=== PATIENT | female | born 1970 | race Caucasian/White ===

== ENCOUNTER 2024-06-19 19:01 | Emergency (ER) | payer SELFPAY ==
[2024-06-19] VITALS (52 sets, daily range): BP systolic 124–182; BP diastolic 71–107; PULSE 63–129; RESP 12–31; TEMP 36.8; O2SAT 93–100; BMI 38.1
[2024-06-19 19:37] LABS: Bilirubin Urine Negative (Negative); Blood Urine 1+ (Negative); Glucose Urine UA Negative (Normal); Ketones Urine Negative (Negative); Leukocyte Esterase Urine Trace (Negative); Nitrate Urine Negative (Negative); Protein Urine Negative (Negative); Urine Appearance Clear (CLEAR); Urine Color Yellow (Yellow); Urobilinogen Urine 0.2 mg/dL (Negative)
--- NOTE | 2024-06-19 19:39 | CTR_ITS ---
PROCEDURE INFORMATION: Exam: CT Head Without Contrast Exam date and time: 06/19/2024 7:53 PM Age: 54 years old Clinical indication: Patient HX: C/O dizziness with hypertension; Additional info: HTN, dizziness TECHNIQUE: Imaging protocol: Computed tomography of the head without contrast. Radiation optimization: All CT scans at this facility use at least one of these dose optimization techniques: automated exposure control; mA and/or kV adjustment per patient size (includes targeted exams where dose is matched to clinical indication); or iterative reconstruction. COMPARISON: No relevant prior studies available. RADIATION DOSE METRICS: Total DLP (mGy-cm): 1018.58 FINDINGS: Brain: No hemorrhage. Periventricular and subcortical white matter hypodensities likely represent chronic small vessel ischemic changes. No mass effect. Cerebral ventricles: No ventriculomegaly. Paranasal sinuses: Visualized sinuses are unremarkable. No fluid levels. Mastoid air cells: Visualized mastoid air cells are well aerated. Bones: Unremarkable. No acute fracture. Soft tissues: Unremarkable. CT/CT head wo con* [id number] IMPRESSION: No acute intracranial abnormality.
[2024-06-19 19:42] LABS: Bacteria Urine None Seen /hpf; Hyaline Casts Urine 0-4 /lpf; Squamous Epithelial Cell Urine 0-5 /hpf (0-5)
[2024-06-19 19:47] LABS: Basophils # 0.1 10^3/uL (0.0-0.1); Basophils % 0.5 %; Eosinophils # 0.1 10^3/uL (0.0-0.8); Eosinophils % 0.5 %; Hematocrit 46.2 % (36-47); Lymphocytes # 3.7 10^3/uL (0.8-4.8); Lymphocytes % 24.5 %; Mean Corpuscular HGB Conc 34.4 g/dL (30-55); Mean Corpuscular Hemoglobin 29.9 pg (27-33); Mean Platelet Volume 10.1 fL (7.4-10.4); Monocytes # 0.8 10^3/uL (0.2-0.9); Monocytes % 5.4 %; Neutrophils # 10.36 10^3/uL (1.8-7.7); Neutrophils % 68.6 %; Nucleated Red Blood Cells % 0 %; Platelet Count 383 10^3/cmm (157-399); Red Blood Count 5.31 10^6/uL (3.85-5.65); Red Cell Distribution Width 12.8 % (12.1-15.1); White Blood Count 15.09 10^3/uL (3.29-11.43)
[2024-06-19] MEDS: metoprolol tartrate 1 mg/1 mL SDV 5 mL 5 MG IVP ×2 (19:48→21:53)
[2024-06-19] MEDS: amlodipine 10 mg Tablet PO (19:48)
[2024-06-19 19:58] LABS: INR 1.03 (0.8-1.2)
[2024-06-19 19:59] LABS: Partial Thromboplastin Time 30.5 SECONDS (23.9-36.7)
[2024-06-19 20:14] LABS: Alanine Aminotransferase 17 U/L (0-33); Albumin Level 4.1 g/dL (3.5-5.2); Alkaline Phosphatase 83 U/L (35-105); Anion Gap 14.6 (5-19); Aspartate Amino Transferase 17 U/L (0-32); Blood Urea Nitrogen 11 mg/dL (6-20); Calcium 8.7 mg/dL (8.5-10.5); Carbon Dioxide 28 mmol/L (22-29); Chloride 96 mmol/L (98-107); Creatinine Clr Calc Pharmacy 125.1966; Globulin 3.4 g/dL (1.3-4.6); Glomerular Filtration Rate 103.4 mL/min (90-130); Glucose 217 mg/dL (65-115); Magnesium 2.1 mg/dL (1.7-2.3); NT Pro B Type Natriuretic Pept 171 pg/mL (0-125); Osmolality Calculated 286 mOsm/kg (285-295); Potassium 3.6 mmol/L (3.5-5.1); Sodium 135 mmol/L (136-145); Total Protein 7.5 g/dL (6.6-8.7)
[2024-06-19] MEDS: meclizine 25 mg tablet PO (21:11)
--- NOTE | 2024-06-19 22:31 | W.ED.GENADLT ---
HPI - General Adult General: Chief complaint: General Medical Stated complaint: HYPERTENSION Time Seen by Provider: 06/19/24 19:13 History of Present Illness: 54-year-old female presenting with high blood pressure, and what she relates is dizziness. Dizziness is worse with sitting down she says. She has wavy vision. No blind spots no problems with language, numbness, weakness, etc. Dizziness seems intermittent. She says that she can walk fine. For quite some time, likely since 2009, which is the last time she saw a doctor. She was seen in the clinic earlier, and placed on hydrochlorothiazide/lisinopril Related Data Previous Rx's Medication Instructions Recorded clonidine HCl 0.1 mg tablet 0.1 mg PO TID PRN hypertensive 06/19/24 emergency #90 tabs lisinopril 20 1 tab PO DAILY 30 days #30 tabs 06/19/24 mg-hydrochlorothiazide 25 mg tablet Allergies Allergy/AdvReac Type Severity Reaction Status Date / Time No Known Allergies Allergy Unverified 06/19/24 09:31 [facility] ED PFSH: Social History Smoking and tobacco/nicotine status: never used tobacco/nicotine Physical Exam Const: COMMON NORMALS: no acute distress GENERAL APPEARANCE: cooperative; not ill appearing and not frail appearing HENMT: COMMON NORMALS: normocephalic, atraumatic and Normal external nose present HEAD & SCALP: normocephalic and atraumatic FACE & SINUS: normal facial exam and face symmetric NOSE: Normal external nose present Eye: COMMON NORMALS: Equal, round and reactive pupils present and EOMs intact bilaterally PUPIL: Yes Equal, round and reactive pupils present Neck/C-Spine: GENERAL: Yes trachea midline Chest: CHEST: Yes Symmetrical chest wall rise Resp: COMMON NORMALS: normal respiratory effort, No retractions, No use of accessory muscles and clear to auscultation bilaterally AUSCULTATION: clear to auscultation bilaterally Cardio: COMMON NORMALS: regular rate and regular rhythm RATE: regular rate RHYTHM: regular rhythm GI: COMMON NORMALS: Normal to inspection, nondistended, normoactive bowel sounds present Extremity: COMMON NORMALS: no pedal edema Neuro: BONNIE COMA SCALE: document GCS findings [place] coma scale eye opening: Spontaneous Bonnie coma scale verbal response: Orientated [place] coma scale motor response: Obey commands [place] coma scale total score: 15 SENSORY EXAM: Yes extremities (intact) Psych: COMMON NORMALS: speech normal SPEECH: Yes normal speech Skin: COMMON NORMALS: no rashes or lesions noted GENERAL SKIN EXAM: no rashes or lesions noted Course Vital Signs: Vital signs: Vital Signs Temperature 98.2 F 06/19/24 19:16 Pulse Rate 67 06/20/24 01:06 Respiratory Rate 18 06/20/24 01:06 Blood Pressure 140/89 06/20/24 01:06 Pulse Oximetry 95 06/20/24 01:06 Oxygen Delivery Me thod Room Air 06/19/24 19:16 MDM - General Adult Medical Decision Making Patient is quite hypertensive on arrival, 180s over 100s. Now down to 153/84, blood cell count is 15, without significant shift in cells. Hemoglobin is 16. Head CT is nonacute. Other laboratory is essentially unremarkable. Patient was given meclizine for the dizziness. She has walked in the hallway without assistance. Patient is no longer dizzy. She does still state that her vision is wavy . On reexamination, waviness is bilateral, with vision appearing the same with left eye closed versus right. Funduscopic exam is not abnormal. Differential diagnosis includes an ocular migraine. She will be given IV valproic acid for this. In the absence of other neurologic findings, will allow discharge. Close outpatient follow-up. She is to continue her antihypertensive medicine prescribed earlier today. Lab Data 06/19/24 19:30 06/19/24 19:[address] 06/19/24 19:39 IMPRESSION: No acute intracranial abnormality. Laboratory Results WBC 15.09 10^3/uL (3.29-11.43) H 06/19/24 19:30 RBC 5.31 10^6/uL (3.85-5.65) 06/19/24 19:30 Hgb 15.90 g/dL (11.27-16.99) 06/19/24 19:30 Hct 46.2 % (36-47) 06/19/24 19:30 MCV 87.0 fl (85-98) 06/19/24 19:30 MCH 29.9 pg (27-33) 06/19/24 19:30 MCHC 34.4 g/dL (30-55) 06/19/24 19:30 RDW 12.8 % (12.1-15.1) 06/19/24 19:30 Plt Count 383 10^3/cmm (157-399) 06/19/24 19:30 MPV 10.1 fL (7.4-10.4) 06/19/24 19:30 Neut % (Auto) 68.6 % 06/19/24 19:30 Lymph % (Auto) 24.5 % 06/19/24 19:30 [place] % (Auto) 5.4 % 06/19/24 19:30 Eos % (Auto) 0.5 % 06/19/24 19:30 Baso % (Auto) 0.5 % 06/19/24:30 Neut # (Auto) 10.36 10^3/uL (1.8-7.7) H 06/19/24 19:30 Lymph # (Auto) 3.7 10^3/uL (0.8-4.8) 06/19/24 19:30 [place] # (Auto) 0.8 10^3/uL (0.2-0.9) 06/19/24 19:30 Eos # (Auto) 0.1 10^3/uL (0.0-0.8) 06/19/24 19:30 Baso # (Auto) 0.1 10^3/uL (0.0-0.1) 06/19/24 19:30 Nucleated RBC % (auto) 0 % 06/19/24: Nucleated RBCs # 0.0 /100WBC 06/19/24:30 PT 13.90 SECONDS (12.1-14.9) 06/19/24 19:30 INR 1.03 (0.8-1.2) 06/19/24 19:30 APTT 30.5 SECONDS (23.9-36.7) 06/19/24 19:30 Sodium 135 mmol/L (136-145) L 06/19/24 19:30 Potassium 3.6 mmol/L (3.5-5.1) 06/19/24 19:30 Chloride 96 mmol/L (98-107) L 06/19/24:30 Carbon Dioxide 28 mmol/L (22-29) 06/19/24 19:30 Anion Gap 14.6 (5-19) 06/19/24 19:30 BUN 11 mg/dL (6-20) 06/19/24 19:30 Creatinine 0.6 mg/dL (0.5-0.9) 06/19/24 19:30 GFR Calculation 103.4 mL/min (90-130) 06/19/24 19:30 Glucose 217 mg/dL (65-115) H 06/19/24 19:30 Calculated Osmolality 286 mOsm/kg (285-295) 06/19/24 19:30 Calcium 8.7 mg/dL (8.5-10.5) 06/19/24 19:30 Magnesium 2.1 mg/dL (1.7-2.3) 06/19/24: Total Bilirubin 1.0 mg/dL (0.15-1.2) 06/19/24 19:30 AST 17 U/L (0-32) 06/19/24 19:30 ALT 17 U/L (0-33) 06/19/24 19:30 Alkaline Phosphatase 83 U/L (35-105) 06/19/24 19:30 NT-Pro-B Natriuret Pep 171 pg/mL (0-125) H 06/19/24 19:30 Total Protein 7.5 g/dL (6.6-8.7) 06/19/24 19:30 Albumin 4.1 g/dL (3.5-5.2) 06/19/24 19:30 Globulin 3.4 g/dL (1.3-4.6) 06/19/24 19:30 Urine Color Yellow (Yellow) 06/19/24: Urine Appearance Clear (CLEAR) 06/19/24 19:24 Urine pH 6.0 (5-7) 06/19/24 19:24 Ur Specific [place] 1.010 (1.005-1.030) 06/19/24 19:24 Urine Protein Negative (Negative) 06/19/24 19: Urine Glucose (UA) Negative (Normal) 06/19/24 19: Urine Ketones Negative (Negative) 06/19/24: Urine Blood 1+ (Negative) A 06/19/24 19: Urine Nitrate Negative (Negative) 06/19/24: Urine Bilirubin Negative (Negative) 06/19/24:24 Urine Urobilinogen 0.2 mg/dL (Negative) 06/19/24 19:24 Ur Leukocyte Esterase Trace (Negative) A 06/19/24 19:24 Urine RBC 3-5 /hpf (0-2) 06/19/24 19:24 Urine WBC 6-10 /hpf (0-5) 06/19/24 19:24 Ur Squamous Epith Cells 0-5 /hpf (0-5) 06/19/24 19:24 Amorphous Sediment Not Reportable 06/19/24 19:24 Urine Bacteria None seen /hpf (NONE) 06/19/24 19:24 Hyaline Casts 0-4 /lpf H 06/19/24 19:24 All radiology interpretation(s) finalized by discharge Discharge Plan Discharge Patient Disposition: Home Clinical Impression: Hypertensive urgency, Alteration in vision Condition: Stable Prescriptions: No Action clonidine HCl 0.1 mg tablet 0.1 mg PO TID PRN (Reason: hypertensive emergency) Qty: 90 0RF lisinopril-hydrochlorothiazide 20-25 mg tablet 1 tab PO DAILY 30 Days Qty: 30 3RF Discharge Orders: Discharge ED (Routine); Ordered 06/19/24 Ordered By: Tony Mcdaniel Referrals: Milana Geller MD [Primary Care Provider] - 1-3 days Nathen Brink [Physician] - 1-3 days Patient Instructions: Hypertension (ED), Opioid Safety, Pain Management, Vision Problems Activity Restrictions/Additional Instructions: Continue the blood pressure medication you were prescribed earlier today. Return for onset of new symptoms such as language problems, speech problems, weakness, numbness, worsening headache, other concerning symptoms. Return also if your vision continues to worsen. Call ophthalmology Saturday morning for a follow-up appointment. You should see your doctor next week as well. Coding Level of Care Code ED Switchboard Receptionist for [place] NIH stroke score NIHSS Level Of Consciousness - 1a: 0 Level Of Consciousness Questions - 1b: Both Correct Level Of Consciousness Commands - 1c: Both Correct Best Gaze - 2: Normal Visual Jung - 3: No Visual Loss Facial Palsy - 4: Normal Motor Arm Left - 5: No Drift Motor Leg Right - 6: No Drift Motor Leg Left - 6: No Drift Limb Ataxia - 7: Absent Sensory - 8: Normal Best Language - 9: No Aphasia Dysarthia - 10: Normal Extinction And Inattention - 11: 0
[2024-06-19] MEDS: valproic acid inj 500 MG in sodium chloride 0.9% 50 ML 55 MG IV (23:37)
[2024-06-20] VITALS (10 sets, daily range): BP systolic 134–142; BP diastolic 74–89; PULSE 65–68; RESP 14–29; O2SAT 92–99
== END 2024-06-20 01:08 | disposition home or self-care (01) ==
PROVIDERS: Emergency Provider Emergency Medicine; Family Provider Family Medicine; PCP Family Medicine
DX: I16.0 Hypertensive urgency (principal); H53.9 Unspecified visual disturbance
CPT/HCPCS: 70450; 80053; 81001; 83735; 83880; 85025; 85610; 85730; 96365; 96375; 96376; 99285; J3490; J8597

== ENCOUNTER 2024-06-26 02:30 | Inpatient (IN) | payer SELFPAY ==
[2024-06-26] VITALS (16 sets, daily range): BP systolic 123–174; BP diastolic 72–103; PULSE 67–86; RESP 16–21; TEMP 36.6–37; O2SAT 93–99; BMI 33.3
--- NOTE | 2024-06-26 02:37 | CTR_ITS ---
PROCEDURE INFORMATION: Exam: CT Head Without Contrast Exam date and time: 06/26/2024 3:00 AM Age: 54 years old Clinical indication: Stroke-like symptoms; Left upper extremity and left lower extremity numbness/paresthesia; Additional info: Symptoms of acute stroke TECHNIQUE: Imaging protocol: Computed tomography of the head without contrast. Radiation optimization: All CT scans at this facility use at least one of these dose optimization techniques: automated exposure control; mA and/or kV adjustment per patient size (includes targeted exams where dose is matched to clinical indication); or iterative reconstruction. Other technique: STROKE PROTOCOL was implemented. COMPARISON: CT head wo con* [id number] 06/19/2024 7:53 PM RADIATION DOSE METRICS: Total DLP (mGy-cm): 1108.43 FINDINGS: Brain: 4 mm right pontine hypodensity may represent an acute infarct. Periventricular and deep white matter hypodensities compatible with chronic microvascular ischemic changes. No acute intracranial hemorrhage. No mass effect or midline shift. Cerebral ventricles: No ventriculomegaly. Paranasal sinuses: Visualized sinuses are unremarkable. No fluid levels. Mastoid air cells: No mastoid effusion. Bones: Unremarkable. No acute fracture. Soft tissues: Unremarkable. CT/CT head thrombolytic [id number] IMPRESSION: 4 mm right pontine hypodensity may represent an acute infarct. Findings appear new since recent exam dated 06/19/2024. Follow-up evaluation with MRI. No acute intracranial hemorrhage. ASSESSMENT: ASPECTS ([place] Stroke Program Early CT Score) is 10.
--- NOTE | 2024-06-26 02:40 | ED_ITS ---
HPI - Weakness 2 General: Chief complaint: Weakness Stated complaint: Tingling in LT Leg Time Seen by Provider: 06/26/24 02:37 History of Present Illness: Patient brought in by [facility] with complaints of tingling and weakness off and on in the left arm and left leg for a week. She says it has been intermittent has at times it is better at times is gotten worse. Patient was seen here approximately week ago for high blood pressure diagnosed with a migraine she was put on clonidine at that time and her blood pressure seem to have improved. Upon arrival here is 123/98. Review of Systems 2 General: Reports: 10 or more systems reviewed and unremarkable except in HPI and below PFSH ED 2 PFSH: Social History Smoking and tobacco/nicotine status: never used tobacco/nicotine Physical Exam 2 Const: COMMON NORMALS: no acute distress, average body habitus, patient oriented x3, no limitations, healthy appearing, alert and well nourished HENMT: COMMON NORMALS: normocephalic, atraumatic, hearing grossly normal bilaterally, external ears normal and Normal external nose present; oral mucous membranes not moist (Very dry oral mucosa) HEAD & SCALP: n ormocephalic and atraumatic NOSE: Normal external nose present EXTERNAL EAR: Yes external ears normal Eye: COMMON NORMALS: Equal, round and reactive pupils present, EOMs intact bilaterally, conjunctivae normal and no scleral icterus CONJUNCTIVA: Yes conjunctivae normal PUPIL: Yes Equal, round and reactive pupils present Neck/C-Spine: COMMON NORMALS: full ROM, no lymphadenopathy, supple, no meningeal signs, no JVD and Thyroid normal THYROID: Thyroid normal Chest: COMMONS NORMALS: normal inspection of the chest and normal palpation of entire chest wall Resp: COMMON NORMALS: normal respiratory effort, No retractions, No use of accessory muscles and clear to auscultation bilaterally AUSCULTATION: clear to auscultation bilaterally Cardio: COMMON NORMALS: no JVD, regular rate, regular rhythm, S1 normal heart sound present, S2 normal heart sound present, No gallops present (Cardio), No clicks present (Cardio), No murmurs present (Cardio) and No rub (Cardio) R ATE: regular rate RHYTHM: regular rhythm HEART SOUNDS: S1 normal heart sound present and S2 normal heart sound present GI: COMMON NORMALS: Normal to inspection, nondistended, normoactive bowel sounds present, Soft to palpation, non-tender, No hepatosplenomegaly present and no masses PALPATION: Yes Soft to palpation and Yes No hepatosplenomegaly present Neuro: COMMON NORMALS: patient oriented x3 SENSORIUM/ORIENTATION: Yes alert MENINGEAL SIGNS: Yes no meningeal signs Course 2 Vital Signs: Vital signs: Vital Signs Temperature 98.6 F 06/26/24 02:33 Pulse Rate 80 06/26/24 04:45 Respiratory Rate 18 06/26/24 04:45 Blood Pressure 163/92 06/26/24 04:45 Pulse Oximetry 99 06/26/24 04:45 MDM - Weakness Medical Decision Making Patient was admitted with left-sided weakness times last 3 to 4 days. This has been going off and on. Stroke workup was initiated patient end up with a white count of 18,000, BUN/creatinine 22 and 0.7, head CT showed 4 mm right pontine hypodensity that may represent acute infarct, head CTA is still pending, chest x-ray is negative, UTI present, patient was given 1 L normal saline and 400 mg IV Cipro, we did speak with Dr. Chandra who agreed to place patient inpatient for further treatment pending a negative CTA, if the CTA is positive then we will plan possible transfer. Medical Records I reviewed the patient's medical records. Lab Data I reviewed the patient's lab results. 06/26/24 03:14 06/26/24 03:[address] 06/26/24 02:37 IMPRESSION: 4 mm right pontine hypodensity may represent an acute infarct. Findings appear new since recent exam dated 06/19/2024. Follow-up evaluation with MRI. No acute intracranial hemorrhage. ASSESSMENT: ASPECTS ([place] Stroke Program Early CT Score) is 10. ADDENDUM: 06/26/24 0320 THIS REPORT CONTAINS FINDINGS THAT MAY BE CRITICAL TO PATIENT CARE. The findings were verbally communicated via telephone conference with Dr. Marquez at 318 AM FORMING ACID DUMPER on 06/26/2024. The findings were acknowledged and understood. Chest X-Ray 06/26/24 02:41 IMPRESSION: No acute findings. Laboratory Results WBC 18.21 10^3/uL (3.29-11.43) H 06/26/24 03:14 RBC 5.40 10^6/uL (3.85-5.65) 06/26/24 03:14 Hgb 16.20 g/dL (11.27-16.99) 06/26/24 03:14 Hct 47.1 % (36-47) H 06/26/24 03:14 MCV 87.2 fl (85-98) 06/26/24 03:14 MCH 30.0 pg (27-33) 06/26/24 03:14 MCHC 34.4 g/dL (30-55) 06/26/24 03:14 RDW 12.7 % (12.1-15.1) 06/26/24 03:14 Plt Count 348 10^3/cmm (157-399) 06/26/24 03:14 MPV 11.0 fL (7.4-10.4) H 06/26/24 03:14 Neut % (Auto) 65.9 % 06/26/24 03:14 Lymph % (Auto) 25.9 % 06/26/24 03:14 [place] % (Auto) 7.0 % 06/26/24 03:14 Eos % (Auto) 0.3 % 06/26/24 03:14 Baso % (Auto) 0.4 % 06/26/24 03:14 Neut # (Auto) 12.00 10^3/uL (1.8-7.7) H 06/26/24 03:14 Lymph # (Auto) 4.7 10^3/uL (0.8-4.8) 06/26/24 03:14 [place] # (Auto) 1.3 10^3/uL (0.2-0.9) H 06/26/24 03:14 Eos # (Auto) 0.1 10^3/uL (0.0-0.8) 06/26/24 03:14 Baso # (Auto) 0.1 10^3/uL (0.0-0.1) 06/26/24 03:14 Nucleated RBC % (auto) 0 % 06/26/24 03:14 Nucleated RBCs # 0.0 /100WBC 06/26/24 03:14 PT 13.80 SECONDS (12.1-14.9) 06/26/24 03:14 INR 1.03 (0.8-1.2) 06/26/24 03:14 APTT 29.8 SECONDS (23.9-36.7) 06/26/24 03:14 Sodium 134 mmol/L (136-145) L 06/26/24 03:14 Potassium 3.8 mmol/L (3.5-5.1) 06/26/24 03:14 Chloride 97 mmol/L (98-107) L 06/26/24 03:14 Carbon Dioxide 24 mmol/L (22-29) 06/26/24 03:14 Anion Gap 16.8 (5-19) 06/26/24 03:14 BUN 22 mg/dL (6-20) H 06/26/24 03:14 Creatinine 0.7 mg/dL (0.5-0.9) 06/26/24 03:14 GFR Calculation 86.6 mL/min (90-130) L 06/26/24 03:14 Glucose 229 mg/dL (65-115) H 06/26/24 03:14 POC Glucose 225 mg/dL (70-110) H 06/26/24 03:16 Calculated Osmolality 289 mOsm/kg (285-295) 06/26/24 03:14 Lactic Acid 1.6 mmol/L (0.5-2.2) 06/26/24 03:14 Calcium 9.2 mg/dL (8.5-10.5) 06/26/24 03:14 Magnesium 2.1 mg/dL (1.7-2.3) 06/26/24 03:14 Total Bilirubin 1.5 mg/dL (0.15-1.2) H 06/26/24 03:14 AST 21 U/L (0-32) 06/26/24 03:14 ALT 14 U/L (0-33) 06/26/24 03:14 Alkaline Phosphatase 76 U/L (35-105) 06/26/24 03:14 C-Reactive Protein 16.6 mg/L (0.0-4.9) H 06/26/24 03:14 Total Protein 7.4 g/dL (6.6-8.7) 06/26/24 03:14 Albumin 4.5 g/dL (3.5-5.2) 06/26/24 03:14 Globulin 2.9 g/dL (1.3-4.6) 06/26/24 03:14 Procalcitonin 0.10 ng/mL (0-0.5) 06/26/24 03:14 TSH 0.93 uIU/mL (0.27-4.20) 06/26/24 03:14 Urine Color Yellow (Yellow) 06/26/24 03:28 Urine Appearance Clear (CLEAR) 06/26/24 03:28 Urine pH 5.5 (5-7) 06/26/24 03:28 Ur Specific [place] 1.014 (1.005-1.030) 06/26/24 03:28 Urine Protein Trace (Negative) A 06/26/24 03:28 Urine Glucose (UA) Trace (Normal) H 06/26/24 03:28 Urine Ketones Trace (Negative) 06/26/24 03:28 Urine Blood 1+ (Negative) A 06/26/24 03:28 Urine Nitrate Negative (Negative) 06/26/24 03:28 Urine Bilirubin Negative (Negative) 06/26/24 03:28 Urine Urobilinogen 1.0 mg/dL (Negative) 06/26/24 03:28 Ur Leukocyte Esterase 2+ (Negative) A 06/26/24 03:28 Urine RBC 0-2 /hpf (0-2) 06/26/24 03:28 Urine WBC 51-100 /hpf (0-5) H 06/26/24 03:28 Ur Squamous Epith Cells 6-10 /hpf (0-5) 06/26/24 03:28 Amorphous Sediment Not Reportable 06/26/24 03:28 Urine Bacteria 1+ /hpf (NONE) H 06/26/24 03:28 Hyaline Casts 9.51 /lpf 06/26/24 03:28 Urine Opiates Screen Negative ng/mL (Negative) 06/26/24 03:28 Ur Barbiturates Screen Negative ng/mL (Negative) 06/26/24 03:28 Ur Phencyclidine Scrn Negative ng/mL (Negative) 06/26/24 03:28 Ur Amphetamines Screen Negative ng/mL (Negative) 06/26/24 03:28 U Benzodiazepines Scrn Negative ng/mL (Negative) 06/26/24 03:28 Urine Cocaine Screen Negative ng/mL (Negative) 06/26/24 03:28 U Marijuana (THC) Screen Negative ng/mL (Negative) 06/26/24 03:28 Ethyl Alcohol < 10 mg/dL (0-10) 06/26/24 03:14 All radiology interpretation(s) finalized by discharge Discharge Plan Discharge Patient Disposition: Admitted As Inpatient Clinical Impression: Acute CVA (cerebrovascular accident), UTI (urinary tract infection) Condition: Stable Coding Level of Care Code ED Tree Climber for Chg Fwd Related Data Previous Rx's Medication Instructions Recorded clonidine HCl 0.1 mg tablet 0.1 mg PO TID PRN hypertensive 06/19/24 emergency #90 tabs lisinopril 20 1 tab PO DAILY 30 days #30 tabs 06/19/24 mg-hydrochlorothiazide 25 mg tablet Allergies Allergy/AdvReac Type Severity Reaction Status Date / Time No Known Allergies Allergy Unverified 06/19/24 09:31
--- NOTE | 2024-06-26 02:41 | XRR_ITS ---
PROCEDURE INFORMATION: Exam: XR Chest Exam date and time: 06/26/2024 3:12 AM Age: 54 years old Clinical indication: Shortness of breath; Additional info: Weakness TECHNIQUE: Imaging protocol: Radiologic exam of the chest. Views: 1 view. COMPARISON: No relevant prior studies available. FINDINGS: Lungs: No consolidation. Pleural spaces: Unremarkable. No pleural effusion. No pneumothorax. Heart/Mediastinum: Mild cardiomegaly. Bones/joints: No acute fracture. XR/XR chest 1V portable [id number] IMPRESSION: No acute findings.
[2024-06-26 03:19] LABS: Glucose Point of Care 225 mg/dL (70-110)
[2024-06-26 03:21] LABS: Basophils # 0.1 10^3/uL (0.0-0.1); Basophils % 0.4 %; Eosinophils # 0.1 10^3/uL (0.0-0.8); Eosinophils % 0.3 %; Hematocrit 47.1 % (36-47); Lymphocytes # 4.7 10^3/uL (0.8-4.8); Lymphocytes % 25.9 %; Mean Corpuscular HGB Conc 34.4 g/dL (30-55); Mean Corpuscular Volume 87.2 fl (85-98); Monocytes # 1.3 10^3/uL (0.2-0.9); Neutrophils % 65.9 %; Nucleated Red Blood Cells % 0 %; Platelet Count 348 10^3/cmm (157-399); Red Cell Distribution Width 12.7 % (12.1-15.1); White Blood Count 18.21 10^3/uL (3.29-11.43)
--- NOTE | 2024-06-26 03:22 | CTR_ITS ---
PROCEDURE INFORMATION: Exam: CTA Head With Contrast, Arteriography Exam date and time: 06/26/2024 4:05 AM Age: 54 years old Clinical indication: Weakness; Additional info: Left sided weakness, possible new coty infarct on CT TECHNIQUE: Imaging protocol: Computed tomographic angiography of the head with contrast. Exam focused on the arteries. 3D rendering (Not supervised by radiologist): MIP and/or 3D reconstructed images were created by the technologist. Radiation optimization: All CT scans at this facility use at least one of these dose optimization techniques: automated exposure control; mA and/or kV adjustment per patient size (includes targeted exams where dose is matched to clinical indication); or iterative reconstruction. Contrast material: OMNI 350; Contrast volume: 100 ml; Contrast route: INTRAVENOUS (IV); COMPARISON: CT head thrombolytic [id number] 06/26/2024 3:00 AM RADIATION DOSE METRICS: Total DLP (mGy-cm): 506.57 FINDINGS: ANTERIOR CIRCULATION: Right internal carotid artery: Intracranial segment is patent with no significant stenosis. No aneurysm. Right middle cerebral artery: No occlusion or significant stenosis. No aneurysm. Right anterior cerebral artery: No occlusion or significant stenosis. No aneurysm. Left internal carotid artery: Intracranial segment is patent with no significant stenosis. No aneurysm. Left middle cerebral artery: No occlusion or significant stenosis. No aneurysm. Left anterior cerebral artery: No occlusion or significant stenosis. No aneurysm. POSTERIOR CIRCULATION: Right vertebral artery: No occlusion or significant stenosis. No aneurysm. Left vertebral artery: No occlusion or significant stenosis. No aneurysm. Basilar artery: No occlusion or significant stenosis. No aneurysm. Right posterior cerebral artery: No occlusion or significant stenosis. No aneurysm. Left posterior cerebral artery: No occlusion or significant stenosis. No aneurysm. Brain: No definite mass, mass effect, or midline shift. Cerebral ventricles: No ventriculomegaly. Bones/joints: Unremarkable. No acute fracture. Soft tissues: Unremarkable. PROCEDURE INFORMATION: Exam: CTA Neck With Contrast Exam date and time: 06/26/2024 4:05 AM Age: 54 years old Clinical indication: Weakness; Additional info: Left sided weakness, possible new coty infarct on CT TECHNIQUE: Imaging protocol: Computed tomographic angiography of the neck with contrast. Exam focused on the cervical segments of the vasculature. 3D rendering (Not supervised by radiologist): MIP and/or 3D reconstructed images were created by the technologist. Radiation optimization: All CT scans at this facility use at least one of these dose optimization techniques: automated exposure control; mA and/or kV adjustment per patient size (includes targeted exams where dose is matched to clinical indication); or iterative reconstruction. Contrast material: OMNI 350; Contrast volume: 100 ml; Contrast route: INTRAVENOUS (IV); COMPARISON: CT head thrombolytic [id number] 06/26/2024 3:00 AM RADIATION DOSE METRICS: Total DLP (mGy-cm): 0 FINDINGS: Right common carotid artery: No stenosis. No dissection or occlusion. Right internal carotid artery: No stenosis of the extracranial segment. No dissection or occlusion. Right external carotid artery: No occlusion or stenosis of the origin. Left common carotid artery: No stenosis. No dissection or occlusion. Left internal carotid artery: No stenosis of the extracranial segment. No dissection or occlusion. Left external carotid artery: No occlusion or stenosis of the origin. Right vertebral artery: No stenosis. No dissection or occlusion. Left vertebral artery: No stenosis. No dissection or occlusion. Soft tissues: Normal. No significant soft tissue swelling. Bones/joints: No acute fracture. CT/CT angio headne* [id number] IMPRESSION: No large vessel stenosis or occlusion. IMPRESSION: No stenosis or occlusion. REFERENCES: NASCET CRITERIA. The degree of stenosis in the cervical segment of the internal carotid artery is based on NASCET criteria. Normal is no stenosis. Mild is less than 50% stenosis. Moderate is 50-69% stenosis. Severe is 70% to 99% stenosis. Total occlusion is no detectable patent lumen.
[2024-06-26] MEDS: sodium chloride 0.9% 1,000 ML 999 ML IV (03:28)
[2024-06-26 03:31] LABS: INR 1.03 (0.8-1.2)
[2024-06-26 03:32] LABS: Partial Thromboplastin Time 29.8 SECONDS (23.9-36.7)
[2024-06-26 03:37] LABS: Bilirubin Urine Negative (Negative); Blood Urine 1+ (Negative); Glucose Urine UA Trace (Normal); Ketones Urine Trace (Negative); Leukocyte Esterase Urine 2+ (Negative); Nitrate Urine Negative (Negative); Protein Urine Trace (Negative); Specific Gravity, Urine 1.014 (1.005-1.030); Urine Appearance Clear (CLEAR); Urine Color Yellow (Yellow); pH Urine 5.5 (5-7)
[2024-06-26 03:41] LABS: Add Urine Microscopic? YES; Bacteria Urine 1+ /hpf; Hyaline Casts Urine 9.51 /lpf; RBC Urine 0-2 /hpf (0-2); Universal Test for UA Present (0); WBC Urine 51-100 /hpf (0-5)
[2024-06-26 03:41] LABS: Lactic Sepsis W/Reflex 1.6 mmol/L (0.5-2.2)
--- NOTE | 2024-06-26 03:42 | ECG_ITS ---
[facility] Test Date: 2024-06-26 Pat Name: Cara Hernandez Department: Room: Gender: Female Engagement Engineer: : 1970 Requested By: Aaron Marquez Order Number: [id number] Gonzalez MD: Malcolm Chamorro M.D. Measurements Intervals [place] Rate: 71 P: 31 WI: 152 QRS: -10 QRSD: 86 T: 56 QT: 407 QTc: 442 Interpretive Statements SINUS RHYTHM MODERATE VOLTAGE CRITERIA FOR LVH, CONSIDER NORMAL VARIANT [MEETS CRITERIA IN ONE OF: R(aVL), S(V1), R(V5), R(V5/V6)+S(V1)] NONSPECIFIC T-WAVE ABNORMALITY No previous ECG available for comparison Electronically Signed On 06-26-2024 07:40:00 CDT by Malcolm Chamorro M.D. [email or web address]
[2024-06-26 03:44] LABS: Amphetamines Screen Urine Negative (Negative); Barbiturates Screen Urine Negative (Negative); Benzodiazepines Screen Urine Negative (Negative); Cocaine Screen Urine Negative (Negative); Opiate Screen Urine Negative (Negative); PCP Screen Urine Negative (Negative); THC Screen Urine Negative (Negative)
[2024-06-26 03:46] LABS: Alanine Aminotransferase 14 U/L (0-33); Albumin Level 4.5 g/dL (3.5-5.2); Alkaline Phosphatase 76 U/L (35-105); Blood Urea Nitrogen 22 mg/dL (6-20); C Reactive Protein 16.6 mg/L (0.0-4.9); Calcium 9.2 mg/dL (8.5-10.5); Carbon Dioxide 24 mmol/L (22-29); Chloride 97 mmol/L (98-107); Creatinine Clr Calc Pharmacy 99.8569; Globulin 2.9 g/dL (1.3-4.6); Glomerular Filtration Rate 86.6 mL/min (90-130); Glucose 229 mg/dL (65-115); Magnesium 2.1 mg/dL (1.7-2.3); Osmolality Calculated 289 mOsm/kg (285-295); Sodium 134 mmol/L (136-145); Total Bilirubin 1.5 mg/dL (0.15-1.2); Total Protein 7.4 g/dL (6.6-8.7)
[2024-06-26 03:47] LABS: Alcohol Level < 10 mg/dL (0-10); Anion Gap 16.8 (5-19); Aspartate Amino Transferase 21 U/L (0-32); Potassium 3.8 mmol/L (3.5-5.1)
[2024-06-26 03:49] LABS: Add Urine Culture? Yes
[2024-06-26 03:51] LABS: Thyroid Stimulating Hormone 0.93 uIU/mL (0.27-4.20)
[2024-06-26] MEDS: iohexol 350 mg/mL 500 mL Btl (per mL) IV (04:15)
[2024-06-26] MEDS: ciprofloxacin 400 MG/200 ML PREMIX 200 MG IV (05:05)
[2024-06-26 05:20] LABS: Estmated Average Glucose 203; Hemoglobin A1C 8.7 % (4.0-6.0)
--- NOTE | 2024-06-26 06:11 | P.HP_ITS ---
Providers/Chief Complaint 2 Admitting Physician: Khalif Chandra Chief Complaint: Tingling in LT Leg History of Present Illness Pleasant 54-year-old lady without significant past medical history prior to this month, was seen in the ER last week on 06/19 due to high blood pressure, associated also with symptoms of dizziness, wavy vision. At that time she was also started on lisinopril, HCTZ, clonidine for hypertension and consideration of ocular migraine. Head CT was obtained was nonacute, she was not found to have focal deficits. She states that since returning home she was still having on and off symptoms, but then also developed weakness on the left side of the body probably about 3-4 days ago which was coming and going, this made it difficult for her to walk. She had also fallen down on her bottom and has been having pain in the left hip. She came to the ER today due to left-sided weakness, also left-sided facial droop, mild numbness in the left upper extremity. In ER her blood pressure this time was noted better. Head CT was obtained which shows 4 mm right pontine hypodensity, possibly acute infarct, findings new since prior CT. No hemorrhage. Additional findings include leukocytosis 18.2, UA with 51-100 WBC, 1+ bacteria. Hyaline cast. She states has been having to take care of her frail father at home and has not had much time to look after herself. Review of Systems 2 Const: Denies: fever(s), chills, body aches or malaise ENMT: Denies: throat pain Card: Denies: chest pain, edema, pre-syncope or dyspnea on exertion Resp: Denies: dyspnea, productive cough, change in phlegm color or hemoptysis GI: Denies: abdominal pain, nausea, vomiting, diarrhea, constipation, hematochezia or melena : Denies: flank pain, urinary frequency or hematuria Musc: Denies: back pain, joint swelling or joint redness Skin/Breast: Denies: rash or new lesions Neuro: Reports: weakness in extremities, difficulty walking, frequent falls and dizziness Medications/Allergies Home Medications Medication Instructions Recorded Confirmed Last Taken Type clonidine HCl 0.1 mg tablet 0.1 mg PO TID PRN hypertensive 06/19/24 06/19/24 Unknown Rx emergency #90 tabs lisinopril 20 1 tab PO DAILY 30 days #30 tabs 06/19/24 06/19/24 Unknown Rx mg-hydrochlorothiazide 25 mg tablet Allergies Allergy/AdvReac Type Severity Reaction Status Date / Time No Known Allergies Allergy Unverified 06/19/24 09:31 PFSH Acute 2 PFSH: Social History Smoking and tobacco/nicotine status: never used tobacco/nicotine Vitals/I&O/Wt Last Vital Signs Temp 98.6 F 06/26/24 02:33 Pulse 72 06/26/24 05:50 Resp 16 06/26/24 05:50 BP 167/91 06/26/24 05:50 Pulse Ox 98 06/26/24 05:50 O2 Del Method Room Air 06/26/24 05:50 06/25/24 06/25/24 06/26/24 14:59 22:59 06:59 Intake Total 1200 / 1200 Balance 1200 / 1200 Weight last 48 hrs Weight 90.718 kg Physical Exam 2 Narrative: Accompanied by family. Const: COMMON NORMALS: patient oriented x3 and alert GENERAL APPEARANCE: c ooperative ORIENTATION/CONSCIOUSNESS: Yes awake HENMT: COMMON NORMALS: oropharynx normal Neck/C-Spine: COMMON NORMALS: no JVD Resp: COMMON NORMALS: normal respiratory effort and clear to auscultation bilaterally AUSCULTATION: clear to auscultation bilaterally Cardio: COMMON NORMALS: no JVD, regular rhythm, S1 normal heart sound present, S2 normal heart sound present and No murmurs present (Cardio) RHYTHM: regular rhythm HEART SOUNDS: S1 normal heart sound present and S2 normal heart sound present GI: COMMON NORMALS: Normal to inspection, nondistended, normoactive bowel sounds present, Soft to palpation and non-tender PALPATION: Yes Soft to palpation Extremity: COMMON NORMALS: no joint enlargement and no pedal edema Neuro: COMMON NORMALS: patient oriented x3 and moves all extremities S ENSORIUM/ORIENTATION: Yes alert OTHER: She is awake and alert, following directions, does have mild to moderate left- sided facial droop. No dysarthria. No difficulty with horizontal tracking. Visual herrera full to confrontation. No visual extinction. No difficulty with FNF. Does have mild left upper drift. Moves both lower extremities mild weakness noted on the left side, could not really lift legs up in the bed from back pain from having said in bed for long time. Sensory exam symmetrical, no sensory extinction. Skin: COMMON NORMALS: no rashes or lesions noted GENERAL SKIN EXAM: no rashes or lesions noted Data 06/26/24 03:14 06/26/24 03:14 A&P Assessment and plan (1) Acute CVA (cerebrovascular accident): On and off left-sided weakness in upper and lower extremity, reported previously some numbness [place], but not present currently, mild to moderate left-sided facial droop, symptoms over the last 3 to 4 days, recently diagnosed with hypertension and started on medication. Reviewed vitals, CBC, INR, CMP, magnesium, TSH, UA, UDS, CT head with 4 mm pontine hypodensity may represent acute infarct. Reviewed chest x-ray, reviewed head and neck CTA, ER note, discussed with ER provider. Reviewed EKG, sinus rhythm on monitor impression, pending official read. She was not found to be candidate for TNK being outside the window for intervention. Not candidate for endovascular intervention. Noted leukocytosis, but otherwise afebrile, does have UTI, does not appear to have symptoms of infectious systemic embolic disease, but will obtain blood culture. Discussed with her and her family further assessment and mitigation of predisposing conditions to help reduce chance of recurrent stroke again. Start aspirin, lifelong, Plavix 21 days, statin. Monitor for risk of bleeding with DAPT. She denies having had any hematochezia, melena, hematuria, etc. Reassess blood counts. Continue to optimize hypertension. She is having dehydration, will give gentle hydration and hold HCTZ for now. Continue lisinopril, clonidine. She is additionally found to be newly diagnosed with diabetes, A1c obtained, 8.7. Will need to treatment. Start insulin sliding scale while in the hospital, consider oral hypoglycemics at discharge. Will ask dietitian to see as well. Would benefit from weight loss as well. Additional assessment with echo bubble study, monitor on telemetry to assess for arrhythmia. MRI brain, consider outpatient in case difficulties in obtaining. Please arrange follow-up with neurology within a week. Stroke education. PT, OT assessment. Speech therapy. Bedside swallow. Case management consultation. She is in process of applying for Medicaid. (2) UTI (urinary tract infection): Has received Cipro, will continue. Follow-up urine culture. Qualifiers: Hematuria presence: without hematuria Urinary tract infection type: a cute cystitis Qualified Code(s): N30.00 - Acute cystitis without hematuria (3) Newly diagnosed diabetes: A1c 8.7. No history of diabetes in the past. Sliding scale insulin POC glucose monitoring, consult carbohydrate diet while in the hospital. Consider oral hypoglycemics versus insulin at discharge. Diabetes education. (4) Hypertension: Continue to optimize blood pressure control, continue clonidine, lisinopril. Monitor blood pressure. Cardiac diet. Qualifiers: Hypertension type: primary hypertension Qualified Code(s): I10 - Essential (primary) hypertension Attestations 2 Medical Necessity Statement*: Admission of over 2 midnights anticipated for assessment management of CVA, new diagnosis of diabetes. Diagnoses Acute CVA (cerebrovascular accident) I63.9 UTI (urinary tract infection) N30.00 Hematuria presence: without hematuria Urinary tract infection type: acute cystitis Newly diagnosed diabetes E11.9 Primary hypertension I10 Hypertension type: primary hypertension
--- NOTE | 2024-06-26 06:33 | MR_ITS ---
WS: [id number] MRI HEAD WITHOUT CONTRAST TECHNIQUE: Sagittal T1, T2 axial, T2 axial FLAIR, axial and coronal T1 images, axial susceptibility w eighted imaging, axial diffusion weighted images, and coronal T2 images were obtained. CLINICAL INFORMATION: CVA COMPARISON: CT 06/26/2024 findings FINDINGS: Patchy foci of restricted diffusion in the RIGHT coty compatible with acute pontine infarcts. The lar gest focus measures approximately 5 mm. Mild associated edema. Additional smaller satellite focus of restricted diffusion with a small amount of restricted diffusion peripherally along the RIGHT coty. Foci of partially restricted diffusion in the parasagittal frontal periventricular white matter along the genu of the corpus callosum. This was present on 06/19/2024 but suspicious for subacute ischemia. Recommend correlation with history of demyelinating disease. Moderate patchy supratentorial white matter changes mainly in a periventricular and pericallosal dist ribution. Chronic foci of encephalomalacia involving the anterior corpus callosum. Normal vascular fl ow voids at the skull base. No extra-axial fluid collections. Mucosal thickening in the paranasal sin uses. Mastoid air cells are well aerated. No hemosiderin on the susceptibly weighted images. Normal o ptic chiasm and pituitary infundibulum. Temporal lobes hippocampal formations are normal in appearanc e. MR/MR head wo con* [id number] IMPRESSION: 1. Patchy foci of restricted diffusion compatible with acute ischemia involvin g the RIGHT coty corresponding to the CT findings. 2. Foci of partially restricted diffusion in the frontal periventricular white matter along the genu of the corpus callosum suspicious for subacute ischemia. 3. Moderate patchy supratentorial white matter changes mainly in a periventric ular and pericallosal distribution. Recommend correlation with history of demye linating disease. This also can be seen with hypertension diabetes and small ve ssel disease. 4. No hemosiderin on susceptibility-weighted images. 5. Chronic foci of encephalomalacia involving the anterior corpus callosum. 6. No other acute findings. Discussed with Dr. Derian HANSEN at 06/26/2024 12:27 PM.
--- NOTE | 2024-06-26 06:33 | USCV_ITS ---
Cara Hernandez Age: 54 Gender: F : 1970 Exam Date: 06/26/2024 09:52 Ordering Phys: Khalif Chandra MD Technologist: Yordy Mcmullen [place] [facility] [place]: cva BP: 146 / 81 HR: 79 Rhythm: Sinus Technical Quality: Adequate MEASUREMENTS (Male / Female) Normal Values 2D ECHO LV Diastolic Diameter PLAX 5.1 cm 4.2 - 5.9 / 3.9 - 5.3 cm IVS Diastolic Thickness 1.1 cm 0.6 - 1.0 / 0.6 - 0.9 cm IVS Systolic Thickness 1.6 cm LVPW Diastolic Thickness 1.7 cm 0.6 - 1.0 / 0.6 - 0.9 cm LVPW Systolic Thickness 1.8 cm LVOT Diameter 2.0 cm LV Ejection Fraction 2D Teich 62.7 % LV Ejection Fraction MOD 4C 76.0 % LV Ejection Fraction MOD 2C 53.6 % LV Ejection Fraction 2C AL 59.1 % LA Diameter 3.8 cm RA Systolic Volume 4C AL 23.3 ml RA Systolic Volume 4C MOD 23.1 ml LA Sys Volume AL 38.3 cm cubed LA Sys Volume Index AL 18.5 cm cubed/m squared Aorta at Sinotubular Diameter 2.7 cm M-MODE LA Ao Ratio MM 1.3 AV Cusp Separation MM 2.0 cm DOPPLER AV Peak Velocity 158.0 cm/s LVOT Peak Velocity 99.0 cm/s AV Area Cont Eq vti 1.9 cm squared AV Area Cont Eq pk 2.0 cm squared MV Peak Velocity 85.0 cm/s MV Area PHT 3.7 cm squared Mitral E to A Ratio 0.7 TV Peak Velocity 155.0 cm/s TR Peak Velocity 158.0 cm/s TR Peak Gradient 10.0 mmHg TR Mean Velocity 123.0 cm/s TR Mean Gradient 6.8 mmHg TR Velocity Time Integral 27.2 cm PV Peak Velocity 98.5 cm/s RV Ejection Time 0.3 s FINDINGS Left Ventricle Normal left ventricular size, systolic function and wall thickness, with no regional wall motion abnormalities. Left ventricular ejection fraction is estimated at 60 %. Grade II/IV diastolic dysfunction, moderately elevated filling pressures. Right Ventricle The right ventricle is normal in size and function. RVSP could not be calculated due to incomplete tricuspid regurgitation velocity profile. Right Atrium The right atrium is normal in size. Left Atrium The left atrium is normal in size. Mitral Valve Structurally normal mitral valve without significant stenosis or prolapse. There is no mitral regurgitation. Aortic Valve Structurally normal aortic valve without significant sclerosis or stenosis. There is no aortic regurgitation. Tricuspid Valve Structurally normal tricuspid valve without significant stenosis or regurgitation. Pulmonary artery systolic pressure is normal. Pulmonic Valve Structurally normal pulmonic valve without significant stenosis. There is no pulmonic regurgitation. Pericardium Normal pericardium without effusion. Aorta Normal ascending aorta dimension. IVC The inferior vena cava appears normal. CONCLUSIONS Normal left ventricular size, systolic function and wall thickness, with no regional wall motion abnormalities. Left ventricular ejection fraction is estimated at 60 %. Grade II/IV diastolic dysfunction, moderately elevated filling pressures No significant valve abnormalities. There is no pericardial effusion. Right atrial pressure is around 5 mm of mercury. Ilana Montano MD (Electronically Signed) Final Date: 26 June 2024 12:25 S
[2024-06-26 08:01] LABS: Glucose Point of Care 242 mg/dL (70-110)
[2024-06-26] MEDS: aspirin 81 mg EC Tablet 162 MG PO (09:01)
[2024-06-26] MEDS: insulin lispro 100 unit/1 mL SUBCUT ×4 (09:01→20:41)
[2024-06-26] MEDS: clopidogrel 75 mg Tablet PO (09:01)
[2024-06-26] MEDS: enoxaparin 40 mg/0.4 mL Syringe SUBCUT (09:01)
--- NOTE | 2024-06-26 10:35 | PC.CHAP ---
Pastoral Care Encounter/Spiritual Assessment Type of Contact [] Declined vocational teacher visit [] Patient/Family/Request visit [] Outpatient visit [] Follow-up visit [] Physician referral [] Code/Alert [x] Routine visit [] Staff referral [] Actively dying [] Patient sleeping [] Family support [] [] Out of room [] Palliative care [] [] Receiving care in room [] Pre-surgical visit [] Trauma [] Long length of stay [] ICU visit [] Other: Relational/Emotional Strength [x] Patient feels connected with others/family/visitors/staff [] Distress [] Loneliness/isolation [] Abandonment Spirituality of Patient [x] Person of Christal [] Attends Baptism of their Christal [] Believes in Prayer [] Reads Bible or Scientologist materials [] There are Spiritual issues to be addressed Candy Polisher Interventions [x] Prayer [] Active listening [] Non-anxious presence [] Spiritual/emotional support [] Crisis/trauma care [] Spiritual counseling [] Bereavement support [] Provided bereavement packet [] Provided Bible/devotional materials [] Provided toy/stuffed animal, coloring book to patient or family member [] Provided Communion [] Anointing/[place] [] Salvation [] Completed spiritual assessment [] Other: Impact on Illness or Injury [] Angry [] Fearful [] Anxious [] Often cries [] Exhaustion [] Unable to work [] Unable to attend zoroastrianism [] Unable to walk/stand [] Unable to read [] Unable to drive [] Unable to eat/drink [] Unable to sleep [] Unable to be with family [] Patient intubated [] Other: Summary Time spent with patient 20 min
--- NOTE | 2024-06-26 10:37 | PC.CHAP ---
Pastoral Care Encounter/Spiritual Assessment Type of Contact [] Declined boatbuilder wood visit [] Patient/Family/Request visit [] Outpatient visit [] Follow-up visit [] Physician referral [] Code/Alert [x] Routine visit [] Staff referral [] Actively dying [] Patient sleeping [] Family support [] [] Out of room [] Palliative care [] [] Receiving care in room [] Pre-surgical visit [] Trauma [] Long length of stay [] ICU visit [] Other: Relational/Emotional Strength [x] Patient feels connected with others/family/visitors/staff [] Distress [] Loneliness/isolation [] Abandonment Spirituality of Patient [x] Person of Christal [] Attends Faith of their Christal [] Believes in Prayer [] Reads Bible or Church materials [] There are Spiritual issues to be addressed School Traffic Supervisor Interventions [x] Prayer [] Active listening [] Non-anxious presence [] Spiritual/emotional support [] Crisis/trauma care [] Spiritual counseling [] Bereavement support [] Provided bereavement packet [] Provided Bible/devotional materials [] Provided toy/stuffed animal, coloring book to patient or family member [] Provided Communion [] Anointing/[place] [] Salvation [] Completed spiritual assessment [] Other: Impact on Illness or Injury [] Angry [] Fearful [] Anxious [] Often cries [] Exhaustion [] Unable to work [] Unable to attend druze [] Unable to walk/stand [] Unable to read [] Unable to drive [] Unable to eat/drink [] Unable to sleep [] Unable to be with family [] Patient intubated [] Other: Summary Prayer + 1 Time spent with patient 20 min
--- NOTE | 2024-06-26 10:56 | W.PM.EVENTAC ---
Event Note Event Note: Patient is stating that she does not have any PCP She has applied for Medicaid Today she was eating breakfast when I entered the room Hemodynamically stable Patient is aware that she would need a new PCP, diabetic and hypertensive management script manager is aware Will do physical therapy today. Patient is stating that she has back pain worse around the tail bone, she is not able to sit properly I will go ahead request physical therapy along x-ray of sacral area to rule out fracture Patient may be able to return home over this weekend
--- NOTE | 2024-06-26 11:00 | PC.NURSE ---
Patient is off the floor for MRI.
[2024-06-26 12:04] LABS: Glucose Point of Care 197 mg/dL (70-110)
--- NOTE | 2024-06-26 14:32 | XR_ITS ---
WS: [id number] XR sacrum coccyx min 2V [id number] REASON FOR EXAM: back pain FINDINGS: Examination somewhat limited due to underexposure secondary to body habitus. No fracture of the sacrum or coccyx. Superior and inferior pubic rami are intact. Normal iliac wings. XR/XR sacrum coccyx min 2V [id number] IMPRESSION: No acute abnormality.
[2024-06-26] MEDS: oxyCODONE-APAP 5-325 mg Tablet 1 TAB PO (14:42)
[2024-06-26 16:55] LABS: Glucose Point of Care 164 mg/dL (70-110)
[2024-06-26 20:22] LABS: Glucose Point of Care 281 mg/dL (70-110)
[2024-06-26] MEDS: atorvastatin 40 mg Tablet PO (20:42)
[2024-06-27] VITALS (12 sets, daily range): BP systolic 148–182; BP diastolic 78–101; PULSE 69–89; RESP 14–20; TEMP 36.6–37.1; O2SAT 96–99; BMI 33.3
[2024-06-27 03:10] LABS: Anion Gap 14.7 (5-19); Blood Urea Nitrogen 17 mg/dL (6-20); Calcium 8.4 mg/dL (8.5-10.5); Carbon Dioxide 29 mmol/L (22-29); Chloride 101 mmol/L (98-107); Creatinine Clr Calc Pharmacy 99.8569; Glomerular Filtration Rate 86.6 mL/min (90-130); Glucose 180 mg/dL (65-115); Osmolality Calculated 298 mOsm/kg (285-295); Potassium 3.7 mmol/L (3.5-5.1); Sodium 141 mmol/L (136-145)
[2024-06-27 03:11] LABS: Chol HDL Ratio 4.57 mg/dL (0.0-4.40); Cholesterol 160 mg/dL (0-200); HDL Cholesterol 35 mg/dL (60-100); LDL Cholesterol Calculated 95 mg/dL (50-129); LDL HDL Ratio 2.71 RATIO (0.00-3.22); Triglycerides 151 mg/dL (0-150)
[2024-06-27] MEDS: levoFLOXacin 750 mg Tablet PO (05:04)
[2024-06-27] MEDS: enoxaparin 40 mg/0.4 mL Syringe SUBCUT (05:04)
[2024-06-27 06:35] LABS: Glucose Point of Care 166 mg/dL (70-110)
[2024-06-27] MEDS: clopidogrel 75 mg Tablet PO (08:52)
[2024-06-27] MEDS: aspirin 81 mg EC Tablet 162 MG PO (08:52)
[2024-06-27] MEDS: insulin lispro 100 unit/1 mL SUBCUT ×4 (08:53→21:25)
[2024-06-27] MEDS: lisinopril 5 mg Tablet PO (08:53)
[2024-06-27] MEDS: oxyCODONE-APAP 5-325 mg Tablet 1 TAB PO (08:53)
--- NOTE | 2024-06-27 09:31 | P.PN_ITS ---
Subjective 2 Subjective: Patient is still complaining of back pain She is reluctant to go home because she is scared that she will fall and hurt herself She is hypertensive Will optimize antihypertensive regimen gradually Vitals/I&O/Wt Last Vital Signs Temp 97.9 F 06/27/24 07:18 Pulse 71 06/27/24 07:18 Resp 17 06/27/24 08:53 BP 178/93 06/27/24 07:18 Pulse Ox 96 06/27/24 08:53 O2 Del Method Room Air 06/27/24 07:18 Weight last 48 hrs Weight 90.718 kg Weight 90.718 kg Weight 90.718 kg Physical Exam 2 Narrative: Awake and alert Able to work with PT Able to use a walker Hypertensive Pleasant cooperative Sitting in a chair Eating breakfast Abdomen soft Data 06/26/24 03:14 06/27/24 01:33 Micro: Microbiology 06/26/24 08:54 Blood Culture - Preliminary Blood NEGATIVE TO DATE 06/26/24 08:54 Blood Culture - Preliminary Blood NEGATIVE TO DATE A&P Assessment and plan (1) Hypertensive urgency: (2) Hypertension: Qualifiers: Hypertension type: primary hypertension Qualified Code(s): I10 - Essential (primary) hypertension (3) Newly diagnosed diabetes: (4) Alteration in vision: (5) UTI (urinary tract infection): Qualifiers: Hematuria presence: without hematuria Urinary tract infection type: a cute cystitis Qualified Code(s): N30.00 - Acute cystitis without hematuria (6) Acute CVA (cerebrovascular accident): Plan Will continue physical therapy today Add amlodipine along lisinopril Optimize dose of lisinopril to 10 mg twice daily Plan to discharge her home by tomorrow Will give her outpatient PT recommendations Full code Consistent carb diet Attestations 2 Medical Necessity Statement*: Discharge likely by tomorrow Diagnoses Hypertensive urgency I16.0 Primary hypertension I10 Hypertension type: primary hypertension Newly diagnosed diabetes E11.9 Alteration in vision H54.7 UTI (urinary tract infection) N30.00 Hematuria presence: without hematuria Urinary tract infection type: acute cystitis Acute CVA (cerebrovascular accident) I63.9
--- NOTE | 2024-06-27 10:44 | PC.NURSE ---
Nurse contacted Dr Menard regarding patient asking for something for constipation. Dr Menard ordered lactulose 10 and senna s - po. Orders placed by nurse.
[2024-06-27] MEDS: amlodipine 10 mg Tablet PO (10:59)
[2024-06-27] MEDS: sennosides-docusate Tablet 1 TAB PO (10:59)
[2024-06-27] MEDS: lactulose oral liq 20 gm/30 mL UDC 10 GM PO (10:59)
--- NOTE | 2024-06-27 11:20 | PC.NURSE ---
patient scores 0 on the NIH stroke scale but does have weakness in the both left arm and left leg
[2024-06-27 12:51] LABS: Glucose Point of Care 198 mg/dL (70-110)
[2024-06-27 16:57] LABS: Glucose Point of Care 148 mg/dL (70-110)
[2024-06-27] MEDS: lisinopril 5 mg Tablet 10 MG PO (18:08)
[2024-06-27 20:36] LABS: Glucose Point of Care 235 mg/dL (70-110)
[2024-06-27] MEDS: atorvastatin 40 mg Tablet PO (21:25)
[2024-06-28] VITALS (7 sets, daily range): BP systolic 149–165; BP diastolic 79–90; PULSE 68–89; RESP 17–22; TEMP 36.6–37.1; O2SAT 93–98
[2024-06-28 01:58] LABS: Bacillus cereus group Not Detected (NOT DETECT); Bacillus subtillis group Not Detected (NOT DETECT); Corynebacterium Not Detected (NOT DETECT); Cutibacterium acnes (P.acnes) Not Detected (NOT DETECT); Enterococcus Not Detected (NOT DETECT); Enterococcus faecalis Not Detected (NOT DETECT); Enterococcus faecium Not Detected (NOT DETECT); Lactobacillus species Not Detected (NOT DETECT); Listeria Not Detected (NOT DETECT); Listeria monocytogenes Not Detected (NOT DETECT); Micrococcus Not Detected (NOT DETECT); Pan Candida Not Detected (NOT DETECT); Pan Gram-Negative Not Detected (NOT DETECT); Staphylococcus epidermidis Not Detected (NOT DETECT); Staphylococcus lugdunensis Not Detected (NOT DETECT); Staphylococcus species Not Detected (NOT DETECT); Streptococcus agalactiae Not Detected (NOT DETECT); Streptococcus anginosus group Not Detected (NOT DETECT); Streptococcus pneumoniae Not Detected (NOT DETECT); Streptococcus pyogenes Not Detected (NOT DETECT); Streptococcus species Not Detected (NOT DETECT)
[2024-06-28] MEDS: enoxaparin 40 mg/0.4 mL Syringe SUBCUT (06:00)
[2024-06-28] MEDS: levoFLOXacin 750 mg Tablet PO (06:00)
[2024-06-28 06:48] LABS: Glucose Point of Care 165 mg/dL (70-110)
[2024-06-28] MEDS: amlodipine 10 mg Tablet PO (08:27)
[2024-06-28] MEDS: lisinopril 5 mg Tablet 10 MG PO (08:29)
[2024-06-28] MEDS: oxyCODONE-APAP 5-325 mg Tablet 1 TAB PO (08:30)
[2024-06-28] MEDS: sennosides-docusate Tablet 1 TAB PO (08:30)
[2024-06-28] MEDS: aspirin 81 mg EC Tablet 162 MG PO (08:30)
[2024-06-28] MEDS: clopidogrel 75 mg Tablet PO (08:30)
[2024-06-28] MEDS: insulin lispro 100 unit/1 mL SUBCUT ×2 (08:33→12:51)
[2024-06-28] MEDS: nystatin powder 30 gm Btl 1 APPLIC TOPICAL (11:35)
--- NOTE | 2024-06-28 12:06 | P.DS_ITS ---
Discharge Providers Date of Admission: 06/26/24 05:46 Date of Discharge: June 28, 2024 Attending Provider at Admission: Khalif Chandra Attending Provider at Discharge: Ilana Menard MD Diagnoses at Discharge Discharge Diagnosis (1) Hypertensive urgency: Status: Inactive (2) Hypertension: Status: Acute Qualifiers: Hypertension type: primary hypertension Qualified Code(s): I10 - Essential (primary) hypertension (3) Newly diagnosed diabetes: Status: Acute (4) Alteration in vision: Status: Inactive (5) UTI (urinary tract infection): Status: Acute Qualifiers: Hematuria presence: without hematuria Urinary tract infection type: acute cystitis Qualified Code(s): N30.00 - Acute cystitis without hematuria (6) Acute CVA (cerebrovascular accident): Status: Acute Reason for Visit Reason for Visit: Tingling in LT Leg Hospital Course Hospital Course First [facility] pleasant 54-year-old lady without significant past medical history prior to this month, was seen in the ER last week on 06/19 due to high blood pressure, associated also with symptoms of dizziness, wavy vision. At that time she was also started on lisinopril, HCTZ, clonidine for hypertension and consideration of ocular migraine. Head CT was obtained was nonacute, she was not found to have focal deficits. She states that since returning home she was still having on and off symptoms, but then also developed weakness on the left side of the body probably about 3-4 days ago which was coming and going, this made it difficult for her to walk. She had also fallen down on her bottom and has been having pain in the left hip. She came to the ER 06/26 due to to left-sided weakness, also left-sided facial droop, mild numbness in the left upper extremity. In ER her blood pressure this time was noted better. Head CT was obtained which shows 4 mm right pontine hypodensity, possibly acute infarct, findings new since prior CT. No hemorrhage. During hospitalization patient did well with physical therapy, she is able to walk with the help of a walker, patient will need medications for her hypertension and newly diagnosed type 2 diabetes, she seems to have metabolic syndrome, hemoglobin A1c is 8.7, head MRI findings were discussed with the radiologist, she had demyelinating white matter disease but she does not have typical multiple sclerosis features at this point, it seems likely secondary to uncontrolled hyperglycemia and hypertension. She was complaining of back pain sacrum x-ray did not show any fractures. I have asked patient not to take clonidine Echo shows grade 2 diastolic function 60% EF Physical Exam Narrative: Left-sided weakness able to use a walker Awake and alert 149/79 mmhg GCS 15 currently patient is on room air Discharge Data Studies Completed and Pending Completed Studies During Hospitalization Category Date Time Status CT angio head neck [CT angio headneck* 85026/18485] Cat Scan 06/26/24 03:[address] head thrombolytic [id number] Stat Cat Scan 06/26/24 02:37 Completed XR chest 1V portable [id number] Stat Exams 06/26/24 02:41 Completed XR sacrum coccyx min 2V [id number] Routine Exams 06/26/24 14:32 Completed MR head wo con* [id number] Routine MRI 06/26/24 06:33 Completed CV. echo w/w bubble cont [id number] Routine Ultrasound 06/26/24 06:33 Completed Pending at discharge Category Date Time Status Antiphospholipid Antibody Giv[place] Routine Lab 06/26/24 15:21 Received Blood Culture Stat Lab 06/26/24 08:54 Results PROTEIN C, ACTIVITY Routine Lab 06/26/24 15:21 Received PROTEIN S, ACTIVITY Routine Lab 06/26/24 15:21 Received Radiology Impressions Head CT 06/26/24 02:37 IMPRESSION: 4 mm right pontine hypodensity may represent an acute infarct. Findings appear new since recent exam dated 06/19/2024. Follow-up evaluation with MRI. No acute intracranial hemorrhage. ASSESSMENT: ASPECTS ([place] Stroke Program Early CT Score) is 10. ADDENDUM: 06/26/24 0320 THIS REPORT CONTAINS FINDINGS THAT MAY BE CRITICAL TO PATIENT CARE. The findings were verbally communicated via telephone conference with Dr. Marquez at 318 AM [employer] on 06/26/2024. The findings were acknowledged and understood. Chest X-Ray 06/26/24 02:41 IMPRESSION: No acute findings. Head/Neck CTA 06/26/24 03:22 IMPRESSION: No large vessel stenosis or occlusion. IMPRESSION: No stenosis or occlusion. REFERENCES: NASCET CRITERIA. The degree of stenosis in the cervical segment of the internal carotid artery is based on NASCET criteria. Normal is no stenosis. Mild is less than 50% stenosis. Moderate is 50-69% stenosis. Severe is 70% to 99% stenosis. Total occlusion is no detectable patent lumen. Head MRI 06/26/24 06:33 IMPRESSION: 1. Patchy foci of restricted diffusion compatible with acute ischemia involving the RIGHT coty corresponding to the CT findings. 2. Foci of partially restricted diffusion in the frontal periventricular white matter along the genu of the corpus callosum suspicious for subacute ischemia. 3. Moderate patchy supratentorial white matter changes mainly in a periventricular and pericallosal distribution. Recommend correlation with history of demyelinating disease. This also can be seen with hypertension diabetes and small vessel disease. 4. No hemosiderin on susceptibility-weighted images. 5. Chronic foci of encephalomalacia involving the anterior corpus callosum. 6. No other acute findings. Discussed with Dr. Derian HANSEN at 06/26/2024 12:27 PM. Sacrum and Coccyx X-Ray 06/26/24 14:32 IMPRESSION: No acute abnormality. Laboratory Results WBC 18.21 10^3/uL (3.29-11.43) H 06/26/24 03:14 RBC 5.40 10^6/uL (3.85-5.65) 06/26/24 03:14 Hgb 16.20 g/dL (11.27-16.99) 06/26/24 03:14 Hct 47.1 % (36-47) H 06/26/24 03:14 MCV 87.2 fl (85-98) 06/26/24 03:14 MCH 30.0 pg (27-33) 06/26/24 03:14 MCHC 34.4 g/dL (30-55) 06/26/24 03:14 RDW 12.7 % (12.1-15.1) 06/26/24 03:14 Plt Count 348 10^3/cmm (157-399) 06/26/24 03:14 MPV 11.0 fL (7.4-10.4) H 06/26/24 03:14 Neut % (Auto) 65.9 % 06/26/24 03:14 Lymph % (Auto) 25.9 % 06/26/24 03:14 [place] % (Auto) 7.0 % 06/26/24 03:14 Eos % (Auto) 0.3 % 06/26/24 03:14 Baso % (Auto) 0.4 % 06/26/24 03:14 Neut # (Auto) 12.00 10^3/uL (1.8-7.7) H 06/26/24 03:14 Lymph # (Auto) 4.7 10^3/uL (0.8-4.8) 06/26/24 03:14 [place] # (Auto) 1.3 10^3/uL (0.2-0.9) H 06/26/24 03:14 Eos # (Auto) 0.1 10^3/uL (0.0-0.8) 06/26/24 03:14 Baso # (Auto) 0.1 10^3/uL (0.0-0.1) 06/26/24 03:14 Nucleated RBC % (auto) 0 % 06/26/24 03:14 Nucleated RBCs # 0.0 /100WBC 06/26/24 03:14 PT 13.80 SECONDS (12.1-14.9) 06/26/24 03:14 INR 1.03 (0.8-1.2) 06/26/24 03:14 APTT 29.8 SECONDS (23.9-36.7) 06/26/24 03:14 Sodium 141 mmol/L (136-145) 06/27/24 01:33 Potassium 3.7 mmol/L (3.5-5.1) 06/27/24 01:33 Chloride 101 mmol/L (98-107) 06/27/24 01:33 Carbon Dioxide 29 mmol/L (22-29) 06/27/24 01:33 Anion Gap 14.7 (5-19) 06/27/24 01:33 BUN 17 mg/dL (6-20) 06/27/24 01:33 Creatinine 0.7 mg/dL (0.5-0.9) 06/27/24 01:33 GFR Calculation 86.6 mL/min (90-130) L 06/27/24 01:33 Glucose 180 mg/dL (65-115) H 06/27/24 01:33 POC Glucose 165 mg/dL (70-110) H 06/28/24 06:34 Estimat Average Glucose 203 06/26/24 03:14 Hemoglobin A1c 8.7 % (4.0-6.0) H 06/26/24 03:14 Calculated Osmolality 298 mOsm/kg (285-295) H 06/27/24 01:33 Lactic Acid 1.6 mmol/L (0.5-2.2) 06/26/24 03:14 Calcium 8.4 mg/dL (8.5-10.5) L 06/27/24 01:33 Magnesium 2.1 mg/dL (1.7-2.3) 06/26/24 03:14 Total Bilirubin 1.5 mg/dL (0.15-1.2) H 06/26/24 03:14 AST 21 U/L (0-32) 06/26/24 03:14 ALT 14 U/L (0-33) 06/26/24 03:14 Alkaline Phosphatase 76 U/L (35-105) 06/26/24 03:14 C-Reactive Protein 16.6 mg/L (0.0-4.9) H 06/26/24 03:14 Total Protein 7.4 g/dL (6.6-8.7) 06/26/24 03:14 Albumin 4.5 g/dL (3.5-5.2) 06/26/24 03:14 Globulin 2.9 g/dL (1.3-4.6) 06/26/24 03:14 Triglycerides 151 mg/dL (0-150) H 06/27/24 01:33 Cholesterol 160 mg/dL (0-200) 06/27/24 01:33 LDL Cholesterol, Calc 95 mg/dL (50-129) 06/27/24 01:33 HDL Cholesterol 35 mg/dL (60-100) L 06/27/24 01:33 LDL/HDL Ratio 2.71 RATIO (0.00-3.22) 06/27/24 01:33 Cholesterol/HDL Ratio 4.57 mg/dL (0.0-4.40) H 06/27/24 01:33 Procalcitonin 0.10 ng/mL (0-0.5) 06/26/24 03:14 TSH 0.93 uIU/mL (0.27-4.20) 06/26/24 03:14 Urine Color Yellow (Yellow) 06/26/24 03:28 Urine Appearance Clear (CLEAR) 06/26/24 03:28 Urine pH 5.5 (5-7) 06/26/24 03:28 Ur Specific [place] 1.014 (1.005-1.030) 06/26/24 03:28 Urine Protein Trace (Negative) A 06/26/24 03:28 Urine Glucose (UA) Trace (Normal) H 06/26/24 03:28 Urine Ketones Trace (Negative) 06/26/24 03:28 Urine Blood 1+ (Negative) A 06/26/24 03:28 Urine Nitrate Negative (Negative) 06/26/24 03:28 Urine Bilirubin Negative (Negative) 06/26/24 03:28 Urine Urobilinogen 1.0 mg/dL (Negative) 06/26/24 03:28 Ur Leukocyte Esterase 2+ (Negative) A 06/26/24 03:28 Urine RBC 0-2 /hpf (0-2) 06/26/24 03:28 Urine WBC 51-100 /hpf (0-5) H 06/26/24 03:28 Ur Squamous Epith Cells 6-10 /hpf (0-5) 06/26/24 03:28 Amorphous Sediment Not Reportable 06/26/24 03:28 Urine Bacteria 1+ /hpf (NONE) H 06/26/24 03:28 Hyaline Casts 9.51 /lpf 06/26/24 03:28 Urine Opiates Screen Negative ng/mL (Negative) 06/26/24 03:28 Ur Barbiturates Screen Negative ng/mL (Negative) 06/26/24 03:28 Ur Phencyclidine Scrn Negative ng/mL (Negative) 06/26/24 03:28 Ur Amphetamines Screen Negative ng/mL (Negative) 06/26/24 03:28 U Benzodiazepines Scrn Negative ng/mL (Negative) 06/26/24 03:28 Urine Cocaine Screen Negative ng/mL (Negative) 06/26/24 03:28 U Marijuana (THC) Screen Negative ng/mL (Negative) 06/26/24 03:28 Ethyl Alcohol < 10 mg/dL (0-10) 06/26/24 03:14 Vitals Last Vital Signs Temp 98.6 F 06/28/24 11:18 Pulse 75 06/28/24 11:18 Resp 20 H 06/28/24 11:18 BP 149/79 06/28/24 11:18 Pulse Ox 98 06/28/24 11:18 O2 Del Method Room Air 06/28/24 11:18 Discharge Plan Discharge Patient Disposition: Home Condition: Stable Prescriptions: New aspirin 81 mg Tablet,Delayed Release (Dr/Ec) 81 mg PO DAILY Qty: 60 4RF atorvastatin 40 mg Tablet 40 mg PO BEDTIME Qty: 90 3RF amlodipine 10 mg Tablet 10 mg PO DAILY Qty: 90 3RF metformin 500 mg tablet 500 mg PO BIDWMEAL Qty: 60 4RF Januvia 25 mg tablet 25 mg PO DAILY Qty: 60 4RF clopidogrel 75 mg Tablet 75 mg PO DAILY Qty: 20 0RF Continued lisinopril-hydrochlorothiazide 20-25 mg tablet 1 tab PO DAILY 30 Days Qty: 90 3RF Discontinued clonidine HCl 0.1 mg tablet 0.1 mg PO TID PRN (Reason: hypertensive emergency) Qty: 90 0RF Discharge Orders: Discharge Order (Routine); Ordered 06/28/24 Ordered By: Ilana Menard Referrals: Milana Geller MD [Physician] - 1-3 days ( Patient will need to call PCP to make an appointment in the next week.) Khloe Costa MD [Physician] - 2 weeks Discharge Diet: Diabetic Discharge Activity: Increase activity as tolerated Patient Instructions: Aspirin (By mouth), Amlodipine (By mouth), Metformin (By mouth), Atorvastatin (By mouth), Clopidogrel (By mouth), Sitagliptin (By mouth), Opioid Safety Discharge Attestations Time Spent in Discharge Care*: greater than 30 min Quality Metrics Clinical Quality Measures [ No reported AMI, CVA or VTE this stay] Coding Level of Care Code Acute Code for Chg Fwd Diagnoses Hypertensive urgency I16.0 Primary hypertension I10 Hypertension type: primary hypertension Newly diagnosed diabetes E11.9 Alteration in vision H54.7 UTI (urinary tract infection) N30.00 Hematuria presence: without hematuria Urinary tract infection type: acute cystitis Acute CVA (cerebrovascular accident) I63.9
[2024-06-28 12:15] LABS: Glucose Point of Care 215 mg/dL (70-110)
[2024-06-28] MEDS: metformin 500 mg Tablet PO ×2 (12:51→14:24)
[2024-06-28] MEDS: atorvastatin 40 mg Tablet PO (14:23)
[2024-06-28 23:05] LABS: PROTEIN S, ACTIVITY 94 % normal (60-140)
[2024-07-01 04:41] LABS: PROTEIN C, ACTIVITY 172 % normal (70-180)
== END 2024-06-28 14:25 | disposition home or self-care (01) | DRG 65 ==
LOC: ER 05:03 → CSU 05:46
PROVIDERS: Admitting Provider Internal Medicine; Emergency Provider Emergency Medicine; Visit Provider Internal Medicine
DX: I63.9 Cerebral infarction, unspecified (principal); G81.94 Hemiplegia, unspecified affecting left nondominant side; N30.00 Acute cystitis without hematuria; R29.810 Facial weakness; H53.8 Other visual disturbances; R47.1 Dysarthria and anarthria; R20.8 Other disturbances of skin sensation; I10 Essential (primary) hypertension; I16.0 Hypertensive urgency; E11.9 Type 2 diabetes mellitus without complications; E88.810 Metabolic syndrome; M25.552 Pain in left hip
CPT/HCPCS: 36415; 36416; 70450; 70496; 70498; 70551; 71045; 72220; 80048; 80053; 80061; 80306; 80307; 81001; 82962; 83036; 83516; 83605; 83735; 84145; 84443; 85025; 85303; 85306; 85610; 85730; 86140; 86146; 86147; 87040; 87086; 87150; 87205; 92523; 92610; 93005; 96365; 96372; 97110; 97116; 97161; 97166; 99285; C8929; J0744; J1650; J1815; J7030

== ENCOUNTER 2024-07-08 17:11 | Emergency (ER) | payer BC, MEDICAID, SELFPAY ==
--- NOTE | 2024-07-08 17:10 | ECG_ITS ---
[facility] Date: 2024-07-08 Pat Name: Cara Hernandez Department: Room: Gender: Female Rn Vascular: : 1970 Requested By: Pamela Barba Order Number: [id number] Carlos MD: Yenny Boswell M.D. Measurements Intervals [place] Rate: 77 P: 50 DC: 158 QRS: 11 QRSD: 81 T: 61 QT: 356 QTc: 405 Interpretive Statements SINUS RHYTHM Compared to ECG 06/26/2024 03:42:10 T-wave abnormality no longer present Electronically Signed On 07-08-2024 22:40:51 CDT by Yenny Boswell M.D. [email or web address]
[2024-07-08 17:13] VITALS: BP 128/64; PULSE 75; O2SAT 98; BMI 38.1
--- NOTE | 2024-07-08 17:25 | CTR_ITS ---
PROCEDURE INFORMATION: Exam: CT Head Without Contrast Exam date and time: 07/08/2024 5:29 PM Age: 54 years old Clinical indication: Stroke-like symptoms; Generalized weakness; Additional info: Possible stroke TECHNIQUE: Imaging protocol: Computed tomography of the head without contrast. Radiation optimization: All CT scans at this facility use at least one of these dose optimization techniques: automated exposure control; mA and/or kV adjustment per patient size (includes targeted exams where dose is matched to clinical indication); or iterative reconstruction. Other technique: STROKE PROTOCOL was implemented. COMPARISON: MR head wo con* [id number] 06/26/2024 10:45 AM RADIATION DOSE METRICS: Total DLP (mGy-cm): 1111.58 FINDINGS: Brain: No hemorrhage. No edema. Moderate diffuse cerebral atrophy and sequela of chronic small vessel ischemic disease. Old lacunar infarct in the coty. No mass effect. Cerebral ventricles: No ventriculomegaly. Paranasal sinuses: Visualized sinuses are unremarkable. No fluid levels. Mastoid air cells: Visualized mastoid air cells are well aerated. Bones: Unremarkable. No acute fracture. Soft tissues: Unremarkable. CT/CT head wo con* [id number] IMPRESSION: No acute intracranial abnormality. ASSESSMENT: ASPECTS ([place] Stroke Program Early CT Score) is 10.
--- NOTE | 2024-07-08 17:25 | XRR_ITS ---
PROCEDURE INFORMATION: Exam: XR Chest Exam date and time: 07/08/2024 5:34 PM Age: 54 years old Clinical indication: Dyspnea and other: Weakness TECHNIQUE: Imaging protocol: Radiologic exam of the chest. Views: 1 view. COMPARISON: CR (CHEST, ) 06/26/2024 3:12 AM FINDINGS: Lungs: Minor curvilinear scarring in the right lung base. Calcified granuloma noted in the left perihilar region. No consolidation. Pleural spaces: Unremarkable. No pleural effusion. No pneumothorax. Heart/Mediastinum: Unremarkable. No cardiomegaly. Bones/joints: Unremarkable. XR/XR chest 1V portable [id number] IMPRESSION: No acute findings.
[2024-07-08 17:27] LABS: Glucose Point of Care 120 mg/dL (70-110)
--- NOTE | 2024-07-08 17:34 | ED_ITS ---
HPI - Weakness 2 General: Chief complaint: Weakness Stated complaint: Weakness Time Seen by Provider: 07/08/24 17:13 History of Present Illness: 54-year-old female with a recent stroke earlier this month who presents emergency room with generalized weakness and remittent left arm weakness. She has a residual right facial droop. On discharge from the hospital about 12 days ago he was said that she had some left-sided weakness. With right-sided facial droop. She says that she has intermittent worsening of the left arm weakness. She says this is distal and in her left hand. No fevers. No nausea or vomiting. No altered mental status. No slurred speech. No chest pain. No abdominal pain. Review of Systems 2 Narrative: Constitutional symptoms: Negative except as documented in HPI. Skin symptoms: Negative except as documented in HPI. Eye symptoms: Negative except as documented in HPI. ENMT symptoms: Negative except as documented in HPI. Respiratory symptoms: Negative except as documented in HPI. Cardiovascular symptoms: Negative except as documented in HPI. Gastrointestinal symptoms: Negative except as documented in HPI. Genitourinary symptoms: Negative except as documented in HPI. Musculoskeletal symptoms: Negative except as documented in HPI. Neurologic symptoms: Negative except as documented in HPI. Psychiatric symptoms: Negative except as documented in HPI. Endocrine symptoms: Negative except as documented in HPI. PFSH ED 2 PFSH: Medical History (Updated 07/08/24 @ 20:35 by Pamela Hernandez MD) Newly diagnosed diabetes UTI (urinary tract infection) Acute CVA (cerebrovascular accident) Hypertension Social History Smoking and tobacco/nicotine status: never used tobacco/nicotine Physical Exam 2 Narrative: EXAM NARRATIVE: General: Alert, no acute distress. Skin: Warm, dry. Head: Normocephalic, atraumatic. Neck: Supple, trachea midline. Eye: Extraocular movements are intact. Ears, nose, mouth and throat: mucosa moist. Cardiovascular: Regular, Normal peripheral perfusion. Respiratory: Lungs are clear to auscultation, respirations are non-labored, breath sounds are equal, Symmetrical chest wall expansion. Gastrointestinal: Soft, Nontender, Non distended Musculoskeletal: Normal ROM, no deformity. Neurological: Alert and oriented, some slight weakness of her risk advisor in her left hand versus her right. She does have some right sided facial droop. The facial droop is residual from previous stroke. Psychiatric: Cooperative, appropriate mood & affect. Course 2 Vital Signs: Vital signs: Vital Signs Pulse Rate 72 07/08/24 19:41 Blood Pressure 131/62 07/08/24 19:41 Pulse Oximetry 99 07/08/24 19:41 Oxygen Delivery Me thod Room Air 07/08/24 19:41 MDM - Weakness Medical Decision Making Medical decision making: Differential diagnosis for patient with focal neurologic deficit(s) includes but not limited to and based on the above HPI, review of systems and physical exam: ischemic stroke, hemorrhagic stroke and embolic stroke secondary to atrial fibrillation), TIA, Koehler's palsey, metabolic encephalopathy with previous stroke. Orders placed to evaluate differential diagnosis based on the above differential, HPI and physical exam Consultation: Stroke alert was called after my examination of the patient. I spoke with Dr. Costa. Patient had a normal CT angiogram of the head and neck just under 2 weeks ago so she recommends not repeating that study. She recommends to be sure she is on Plavix statin and aspirin, and the patient is. General workup otherwise. EKG: Time 1710. Rate 77. Normal sinus rhythm, No ST-T changes, no ectopy, normal [place] & QRS intervals, This was reviewed and interpreted by myself the ER physician at 1712 Lab Review: Laboratory results were reviewed and interpreted by myself the emergency room physician. Lab work is unremarkable. She does have some mild leukocytosis but this is been present in the past. No anemia. BUN and creatinine are 42 and 1.1 I reviewed the patient's medical record. Reexamination: No new changes or neurologic changes. The left-sided weakness was reported when she was diagnosed with a stroke almost 2 weeks ago. This may be waxing and waning some. Assessment and plan: History of stroke Dehydration Residual left-sided weakness ?Patient is on appropriate therapy for her stroke. Fluids being given. - Discharged home - Discussed findings and plan with patient. Answered any questions. - All laboratory values were reviewed and interpreted personally by myself, the ER physician - All imaging was reviewed and interpreted personally by myself, the ER physician. - Evaluation and treatment of this problem were appropriate in the emergency setting Lab Data 07/08/24 16:14 07/08/24 16:14 Radiology Impressions Chest X-Ray 07/08/24 17:25 IMPRESSION: No acute findings. Head CT 07/08/24 17:25 IMPRESSION: No acute intracranial abnormality. ASSESSMENT: ASPECTS ([place] Stroke Program Early CT Score) is 10. Laboratory Results WBC 17.88 10^3/uL (3.29-11.43) H 07/08/24 16:14 RBC 5.17 10^6/uL (3.85-5.65) 07/08/24 16:14 Hgb 15.80 g/dL (11.27-16.99) 07/08/24 16:14 Hct 44.7 % (36-47) 07/08/24 16:14 MCV 86.5 fl (85-98) 07/08/24 16:14 MCH 30.6 pg (27-33) 07/08/24 16:14 MCHC 35.3 g/dL (30-55) 07/08/24 16:14 RDW 12.4 % (12.1-15.1) 07/08/24 16:14 Plt Count 457 10^3/cmm (157-399) H 07/08/24 16:14 MPV 11.1 fL (7.4-10.4) H 07/08/24 16:14 Neut % (Auto) 77.4 % 07/08/24 16:14 Lymph % (Auto) 15.4 % 07/08/24 16:14 Bledsoe % (Auto) 5.9 % 07/08/24 16:14 Eos % (Auto) 0.6 % 07/08/24 16:14 Baso % (Auto) 0.4 % 07/08/24 16:14 Neut # (Auto) 13.83 10^3/uL (1.8-7.7) H 07/08/24 16:14 Lymph # (Auto) 2.8 10^3/uL (0.8-4.8) 07/08/24 16:14 Bledsoe # (Auto) 1.1 10^3/uL (0.2-0.9) H 07/08/24 16:14 Eos # (Auto) 0.1 10^3/uL (0.0-0.8) 07/08/24 16:14 Baso # (Auto) 0.1 10^3/uL (0.0-0.1) 07/08/24 16:14 Nucleated RBC % (auto) 0 % 07/08/24 16:14 Nucleated RBCs # 0.0 /100WBC 07/08/24 16:14 PT 13.70 SECONDS (12.1-14.9) 07/08/24 16:14 INR 1.02 (0.8-1.2) 07/08/24 16:14 APTT 28.5 SECONDS (23.9-36.7) 07/08/24 16:14 Sodium 136 mmol/L (136-145) 07/08/24 16:14 Potassium 4.1 mmol/L (3.5-5.1) 07/08/24 16:14 Chloride 96 mmol/L (98-107) L 07/08/24 16:14 Carbon Dioxide 22 mmol/L (22-29) 07/08/24 16:14 Anion Gap 22.1 (5-19) H 07/08/24 16:14 BUN 42 mg/dL (6-20) H 07/08/24 16:14 Creatinine 1.1 mg/dL (0.5-0.9) H 07/08/24 16:14 GFR Calculation 51.4 mL/min (90-130) L 07/08/24 16:14 Glucose 98 mg/dL (65-115) 07/08/24 16:14 POC Glucose 120 mg/dL (70-110) H 07/08/24 17:23 Calculated Osmolality 292 mOsm/kg (285-295) 07/08/24 16:14 Lactic Acid 1.8 mmol/L (0.5-2.2) 07/08/24 17:49 Calcium 9.3 mg/dL (8.5-10.5) 07/08/24 16:14 Total Bilirubin 1.1 mg/dL (0.15-1.2) 07/08/24 16:14 AST 25 U/L (0-32) 07/08/24 16:14 ALT 22 U/L (0-33) 07/08/24 16:14 Alkaline Phosphatase 102 U/L (35-105) 07/08/24 16:14 Troponin T Baseline 19 ng/L (0-10) H 07/08/24 16:14 Troponin T 120 Minute 13.51 ng/L (0-10) H 07/08/24 19:00 Delta Troponin T -5.49 ABS# (0-10) L 07/08/24 19:00 Total Protein 7.3 g/dL (6.6-8.7) 07/08/24 16:14 Albumin 4.5 g/dL (3.5-5.2) 07/08/24 16:14 Globulin 2.8 g/dL (1.3-4.6) 07/08/24 16:14 Urine Color Yellow (Yellow) 07/08/24 19:41 Urine Appearance Clear (CLEAR) 07/08/24 19:41 Urine pH 5.0 (5-7) 07/08/24 19:41 Ur Specific [place] 1.019 (1.005-1.030) 07/08/24 19:41 Urine Protein Negative (Negative) 07/08/24 19:41 Urine Glucose (UA) Negative (Normal) 07/08/24 19:41 Urine Ketones Trace (Negative) 07/08/24 19:41 Urine Blood 2+ (Negative) A 07/08/24 19:41 Urine Nitrate Negative (Negative) 07/08/24 19:41 Urine Bilirubin Negative (Negative) 07/08/24 19:41 Urine Urobilinogen 1.0 mg/dL (Negative) 07/08/24 19:41 Ur Leukocyte Esterase Negative (Negative) 07/08/24 19:41 Urine RBC 3-5 /hpf (0-2) 07/08/24 19:41 Urine WBC 0-5 /hpf (0-5) 07/08/24 19:41 Ur Squamous Epith Cells 0-5 /hpf (0-5) 07/08/24 19:41 Uric Acid Crystals 5-10 /hpf H 07/08/24 19:41 Amorphous Sediment Not Reportable 07/08/24 19:41 Urine Bacteria None seen /hpf (NONE) 07/08/24 19:41 Hyaline Casts 12.41 /lpf 07/08/24 19:41 All radiology interpretation(s) finalized by discharge Discharge Plan Discharge Patient Disposition: Home Clinical Impression: History of stroke, Dehydration Condition: Stable Prescriptions: No Action atorvastatin 40 mg Tablet 40 mg PO BEDTIME Qty: 90 3RF clopidogrel 75 mg Tablet 75 mg PO DAILY Qty: 20 0RF aspirin 81 mg Tablet,Delayed Release (Dr/Ec) 81 mg PO DAILY Qty: 60 4RF amlodipine 10 mg Tablet 10 mg PO DAILY Qty: 90 3RF metformin 500 mg tablet 500 mg PO BIDWMEAL Qty: 60 4RF lisinopril-hydrochlorothiazide 20-25 mg tablet 1 tab PO DAILY 30 Days Qty: 90 3RF Januvia 25 mg tablet 25 mg PO DAILY Qty: 60 4RF Discharge Orders: Discharge ED (Routine); Ordered 07/08/24 Ordered By: Pamela Hernandez Referrals: Khloe Costa MD [Physician] - 7-10 days (Please call for a follow-up appointment) Discharge Diet: Usual diet Discharge Activity: Increase activity as tolerated Patient Instructions: Self Care Measures After a Stroke (ED) Activity Restrictions/Additional Instructions: Thank you for choosing [facility] for your healthcare needs today. Please realize this is an emergency room and that we are providing you with a medical screening exam and this may not be complete and all inclusive of all the testing and or work up that you may need to determine your ailment or severity of your illness. You have been screened and evaluated and felt safe for discharge. Health conditions do change or evolve sometimes and as such it is important that you follow up with your Primary Doctor to be re checked, 3-5 days is a general good time frame for follow up. You are always welcome to return to the ED for re assessment if your symptoms are worsening or you have new concerns Coding Level of Care Code ED Medical Device Engineer for [place] Related Data Previous Rx's Medication Instructions Recorded amlodipine 10 mg tablet 10 mg PO DAILY #90 tabs 06/28/24 aspirin 81 mg tablet,delayed 81 mg PO DAILY #60 tabs 06/28/24 release atorvastatin 40 mg tablet 40 mg PO BEDTIME #90 tabs 06/28/24 clopidogrel 75 mg tablet 75 mg PO DAILY #20 tabs 06/28/24 lisinopril 20 1 tab PO DAILY 30 days #90 tabs 06/28/24 mg-hydrochlorothiazide 25 mg tablet metformin 500 mg tablet 500 mg PO BIDWMEAL #60 tabs 06/28/24 sitagliptin phosphate 25 mg tablet 25 mg PO DAILY #60 tabs 06/28/24 (Januvia) Allergies Allergy/AdvReac Type Severity Reaction Status Date / Time No Known Allergies Allergy Unverified 06/19/24 09:31
[2024-07-08 18:01] LABS: Basophils # 0.1 10^3/uL (0.0-0.1); Basophils % 0.4 %; Eosinophils # 0.1 10^3/uL (0.0-0.8); Eosinophils % 0.6 %; Hematocrit 44.7 % (36-47); Lymphocytes # 2.8 10^3/uL (0.8-4.8); Lymphocytes % 15.4 %; Mean Corpuscular HGB Conc 35.3 g/dL (30-55); Mean Corpuscular Hemoglobin 30.6 pg (27-33); Mean Corpuscular Volume 86.5 fl (85-98); Mean Platelet Volume 11.1 fL (7.4-10.4); Monocytes # 1.1 10^3/uL (0.2-0.9); Monocytes % 5.9 %; Neutrophils # 13.83 10^3/uL (1.8-7.7); Neutrophils % 77.4 %; Nucleated Red Blood Cells % 0 %; Platelet Count 457 10^3/cmm (157-399); Red Blood Count 5.17 10^6/uL (3.85-5.65); Red Cell Distribution Width 12.4 % (12.1-15.1); White Blood Count 17.88 10^3/uL (3.29-11.43)
[2024-07-08 18:13] VITALS: BP 128/70; PULSE 77
[2024-07-08 18:19] LABS: Troponin(5th) Baseline 19 ng/L (0-10)
[2024-07-08 18:21] LABS: Lactic Sepsis W/Reflex 1.8 mmol/L (0.5-2.2)
[2024-07-08 18:21] LABS: Alanine Aminotransferase 22 U/L (0-33); Albumin Level 4.5 g/dL (3.5-5.2); Alkaline Phosphatase 102 U/L (35-105); Anion Gap 22.1 (5-19); Aspartate Amino Transferase 25 U/L (0-32); Blood Urea Nitrogen 42 mg/dL (6-20); Calcium 9.3 mg/dL (8.5-10.5); Carbon Dioxide 22 mmol/L (22-29); Chloride 96 mmol/L (98-107); Creatinine Clr Calc Pharmacy 68.2891; Globulin 2.8 g/dL (1.3-4.6); Glomerular Filtration Rate 51.4 mL/min (90-130); Glucose 98 mg/dL (65-115); Osmolality Calculated 292 mOsm/kg (285-295); Potassium 4.1 mmol/L (3.5-5.1); Sodium 136 mmol/L (136-145); Total Bilirubin 1.1 mg/dL (0.15-1.2); Total Protein 7.3 g/dL (6.6-8.7)
[2024-07-08 18:27] LABS: INR 1.02 (0.8-1.2); Partial Thromboplastin Time 28.5 SECONDS (23.9-36.7)
--- NOTE | 2024-07-08 19:26 | ECG_ITS ---
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 Measurements Intervals [place] Rate: 69 P: 34 AR: 162 QRS: -1 QRSD: 84 T: 46 QT: 377 QTc: 406 Interpretive Statements SINUS RHYTHM Compared to ECG 07/08/2024 17:10:07 No significant changes Electronically Signed On 07-08-2024 22:50:07 CDT by Yenny Boswell M.D. [email or web address]
[2024-07-08 19:31] LABS: Troponin 5 2HR 13.51 ng/L (0-10)
[2024-07-08 19:33] LABS: Troponin 5 2HR Delta -5.49 ABS# (0-10)
[2024-07-08 19:41] VITALS: BP 131/62; PULSE 72; O2SAT 99
[2024-07-08 20:03] LABS: Bilirubin Urine Negative (Negative); Blood Urine 2+ (Negative); Glucose Urine UA Negative (Normal); Ketones Urine Trace (Negative); Leukocyte Esterase Urine Negative (Negative); Nitrate Urine Negative (Negative); Protein Urine Negative (Negative); Specific Gravity, Urine 1.019 (1.005-1.030); Urine Appearance Clear (CLEAR); Urine Color Yellow (Yellow)
[2024-07-08 20:05] LABS: Bacteria Urine None Seen /hpf; Hyaline Casts Urine 12.41 /lpf; Squamous Epithelial Cell Urine 0-5 /hpf (0-5); WBC Urine 0-5 /hpf (0-5)
[2024-07-08 20:24] LABS: Add Urine Culture? No
[2024-07-08] MEDS: sodium chloride 0.9% 1,000 ML 999 ML IV (21:09)
[2024-07-08 21:34] VITALS: BP 133/64; PULSE 66; O2SAT 100
[2024-07-08 21:45] VITALS: BP 144/69; RESP 18; O2SAT 100
[2024-07-08 23:02] VITALS: BP 150/72; PULSE 73; O2SAT 100
== END 2024-07-08 22:40 | disposition home or self-care (01) ==
PROVIDERS: Emergency Provider Emergency Medicine
DX: E86.0 Dehydration (principal); I10 Essential (primary) hypertension; E11.9 Type 2 diabetes mellitus without complications; Z86.73 Personal history of transient ischemic attack (TIA), and cerebral infarction without residual deficits; Z79.02 Long term (current) use of antithrombotics/antiplatelets; Z79.82 Long term (current) use of aspirin
CPT/HCPCS: 36415; 36416; 70450; 71045; 80053; 81001; 82962; 83605; 84484; 85025; 85610; 85730; 93005; 99285; J7030